=== PATIENT | female | born 1950 | race Asian ===

== ENCOUNTER 2018-02-10 07:58 | Day surgery (SDC) | payer OTHER ==
[2018-02-09 12:41] VITALS: BMI 25.0
[2018-02-10 09:38] VITALS: TEMP 97.5
[2018-02-10 10:05] VITALS: BP 139/76
[2018-02-10 11:13] VITALS: PULSE 68
--- NOTE | 2018-02-13 17:23 | PATH ---
Surgical Pathology Report Patient Name: TONY CORNELL [facility]. Rec. #: [id number] /Age/Gender: 1950 (Age: 67) / F Account: [id number] Location: [facility]-ENDOSCOPY Taken: 02/10/2018 Received: 02/10/2018 Reported: 02/13/2018 Physicians: Fernie Beaulieu M.D. Specimen(s) Received BX HEPATIC FLEXURE POLYP Clinical History Screening malignancy Postoperative diagnosis: Colon polyp Final Diagnosis COLON, HEPATIC FLEXURE, POLYPECTOMY: TUBULAR ADENOMA. Electronically Signed Sonia Puri M.D. Gross Description Received in formalin, labeled "hepatic flexure" is a bustos, irregular portion of soft tissue measuring 0.5 cm. in greatest dimension. The specimen is submitted in toto in one cassette. 02/10/2018 saudi02/10/2018
== END 2018-02-10 11:13 | disposition home health service (06) ==
LOC: JASU-ENDO 07:58
PROVIDERS: ATTEND Internal Medicine Gastroenterology
PROC: 0DBL8ZZ Excision of Transverse Colon, Via Natural or Artificial Opening Endoscopic (ICD-10-PCS; principal; 2018-02-10 09:00)
DX: Z12.11 Encounter for screening for malignant neoplasm of colon (principal); D12.3 Benign neoplasm of transverse colon; K64.8 Other hemorrhoids
CPT/HCPCS: 82962; 88305-TC

== ENCOUNTER 2023-03-18 04:35 | Day surgery (SDC) | payer OTHER ==
[2023-03-16 08:58] VITALS: BMI 24.0
[2023-03-18 08:39] VITALS: TEMP 98.2
[2023-03-18 09:12] VITALS: RESP 15
[2023-03-18 09:13] VITALS: BP 126/62; PULSE 67
== END 2023-03-18 09:30 | disposition home or self-care (01) ==
LOC: JASU-ENDO 04:35
PROVIDERS: ATTEND Internal Medicine Gastroenterology
PROC: 0DBL8ZX Excision of Transverse Colon, Via Natural or Artificial Opening Endoscopic, Diagnostic (ICD-10-PCS; 2023-03-18)
PROC: 0DBP8ZX Excision of Rectum, Via Natural or Artificial Opening Endoscopic, Diagnostic (ICD-10-PCS; 2023-03-18)
PROC: 0DBK8ZX Excision of Ascending Colon, Via Natural or Artificial Opening Endoscopic, Diagnostic (ICD-10-PCS; principal; 2023-03-18 08:00)
DX: Z12.11 Encounter for screening for malignant neoplasm of colon (principal); D12.3 Benign neoplasm of transverse colon; K63.5 Polyp of colon; K62.1 Rectal polyp; K64.8 Other hemorrhoids; K57.30 Diverticulosis of large intestine without perforation or abscess without bleeding
CPT/HCPCS: 82962; 88305-TC